=== PATIENT | male | born 1960 | race Caucasian/White ===

== ENCOUNTER 2016-10-06 15:48 | Inpatient (IN) | payer OTHER ==
[2016-10-06] MEDS ORDERED: SODIUM CHLORIDE 0.9% 1,000 ML IV STA (15:57)
--- NOTE | 2016-10-06 16:02 | ED ---
General Adult HPI - General Stated complaint: TIA symptoms Time Seen by Provider: 10/06/16 15:51 Source: RN notes reviewed - History of Present Illness Initial comments: 56-year-old male presents to the emergency department with chief complaint of concern for possible TIA. The patient currently sees a metal object. The patient has been having headaches for weeks. The recently took him off his Tylenol threes and his headaches have worsened. Last night he had a coughing episode on his medications and had a vasovagal episode. After this he woke up and he just felt kind of out of it. Patient states that when away before he went to bed. Patient woke up this morning feeling okay but the doctor evaluated him and was concerned about a possible TIA and wanted a CT of the head done. The patient has no new symptoms. He does have chronic shuffling gait and weakness to the left side from previous stroke. Patient has chronic immobility of the left shoulder due to an injury in the past. At this patient is back at baseline and has no neurological symptoms. The patient and were concerned due to the continuing headache with the episode of confusion lasting without that they should be seen.Patient denies any recent fever, chills, shortness of breath, chest pain, back pain, abdominal pain, nausea vomiting, numbness or tingling, dysuria or hematuria, constipation or diarrhea, visual changes, or any other current symptoms. - Related Data Home Medications Medication Instructions Recorded Confirmed Albuterol Inhaler [Ventolin Hfa 2 puff INHALATION RT-Q4H PRN 09/02/16 10/06/16 Inhaler] Aspirin 325 mg PO DAILY 09/02/16 10/06/16 Atenolol/Chlorthalidone 1 tab PO Q12H 09/02/16 10/06/16 [Atenolol-Chlorthalidone 100-25] Carboxymethylcellulose Sodium 1 drop LEFT EYE Q8H PRN 09/02/16 10/06/16 [Refresh Tears] Clopidogrel [Plavix] 75 mg PO DAILY 09/02/16 10/06/16 Gabapentin [Neurontin] 300 mg PO Q8H 09/02/16 10/06/16 Ibuprofen [Motrin] 800 mg PO Q8H PRN 09/02/16 10/06/16 Meclizine [Antivert] 25 mg PO Q6H PRN 09/02/16 10/06/16 Pregabalin [Lyrica] 75 mg PO BID 09/02/16 10/06/16 traZODone HCL 50 mg PO HS 09/02/16 10/06/16 Acetaminophen-Codeine 300-30mg 1 tab PO Q6H PRN 10/06/16 10/06/16 [Tylenol #3] Aspirin EC [Ecotrin Low Dose] 81 mg PO DAILY 10/06/16 10/06/16 Atorvastatin [Lipitor] 40 mg PO HS 10/06/16 10/06/16 Furosemide [Lasix] 40 mg PO BID 10/06/16 10/06/16 Hydrocodone/Acetaminophen [Piqua 1 tab PO Q6HR PRN 10/06/16 10/06/16 5-325] Ranitidine HCl [Zantac] 150 mg PO HS 10/06/16 10/06/16 Verapamil HCl [Calan] 120 mg PO DAILY 10/06/16 10/06/16 Previous Rx's Medication Instructions Recorded amLODIPine [Norvasc] 10 mg PO HS #30 tab 09/06/16 Allergies Allergy/AdvReac Type Severity Reaction Status Date / Time No Known Allergies Allergy Verified 10/06/16 16:58 Review of Systems ROS Statement: Those systems with pertinent positive or pertinent negative responses have been documented in the HPI. ROS Other: All systems not noted in ROS Statement are negative. Past Medical History Past Medical History: Coronary Artery Disease (CAD), CVA/TIA, GERD/Reflux, Hypertension Additional Past Medical History / Comment(s): neuropathy History of Any Multi-Drug Resistant Organisms: None Reported Past Surgical History: No Surgical Hx Reported Past Psychological History: Depression Smoking Status: Former smoker Past Alcohol Use History: None Reported Past Drug Use History: None Reported General Exam - General Exam Comments Initial Comments: General: The patient is awake and alert, in no distress, and does not appear acutely ill. Eye: Pupils are equal, round and reactive to light, extra-ocular movements are intact; there is normal conjunctiva bilaterally. No signs of icterus. Ears, nose, mouth and throat: There are moist mucous membranes and no oral lesions. Neck: The neck is supple, there is no tenderness. Cardiovascular: There is a regular rate and rhythm. No murmur, rub or gallop is appreciated. Respiratory: Lungs are clear to auscultation, respirations are non-labored, breath sounds are equal. No wheezes, stridor, rales, or rhonchi. Gastrointestinal: Soft, non-distended, non-tender abdomen without masses or organomegaly noted. There is no rebound or guarding present. No CVA tenderness. Bowel sounds are unremarkable. Back: There is no tenderness to palpation in the midline. There is no obvious deformity. No rashes noted. Musculoskeletal: Decreased range of motion of left shoulder which is chronic for patient, no tenderness, There is no pedal edema. There is no calf tenderness or swelling. Sensation intact. Pulses equal bilaterally 2+. Neurological: CN II-XII intact, There are no obvious motor or sensory deficits. Coordination appears grossly intact. Speech is normal. Finger to nose does appear to be appropriate, no ataxia noted. Skin: Skin is warm and dry and no rashes or lesions are noted. Psychiatric: Cooperative, appropriate mood & affect, normal judgment. Course Vital Signs 10/06/16 10/06/16 15:56 17:17 Temperature 98.0 F 98 F Pulse Rate 72 61 Respiratory 18 18 Rate Blood Pressure 169/74 158/79 O2 Sat by Pulse 99 96 Oximetry EKG Findings - EKG Comments: EKG Findings:: normal sinus rhythm 65 bpm, normal axis, no atopy, no S-T depressions or elevations, Medical Decision Making - Medical Decision Making 56-year-old male presents emergency 5 chief complaint concern for TIA due to confusion he had last night. Patient is baseline with no new Neurological deficits. At this time the patient has remained his chronic neurological baseline. Due to history of lung strokes as well as the known confusion last night there is concern that this could have a more significant cause. This time there is concern for TIA. Due to his significant history we will admit. The case is discussed with Dr. Zarate does agree to the plan. The patient is in agreement as well. All questions have been answered. He will be admitted. - Lab Data Result diagrams: 10/06/16 16:20 10/06/16 16:20 Lab Results 10/06/16 10/06/16 10/06/16 Range/Units 16:20 16:20 16:20 WBC 11.0 H (3.8-10.6) k/uL RBC 3.59 L (4.30-5.90) m/uL Hgb 10.7 L (13.0-17.5) gm/dL Hct 31.4 L (39.0-53.0) % MCV 87.5 D (80.0-100.0) fL MCH 29.9 (25.0-35.0) pg MCHC 34.1 (31.0-37.0) g/dL RDW 12.7 (11.5-15.5) % Plt Count 404 (150-450) k/uL Neutrophils % 65 % Lymphocytes % 16 % Monocytes % 9 % Eosinophils % 5 % Basophils % 1 % Neutrophils # 7.2 (1.3-7.7) k/uL Lymphocytes # 1.8 (1.0-4.8) k/uL Monocytes # 1.0 (0-1.0) k/uL Eosinophils # 0.5 (0-0.7) k/uL Basophils # 0.1 (0-0.2) k/uL PT (9.0-12.0) sec INR (<1.1) APTT (22.0-30.0) sec Sodium 130 L (137-145) mmol/L Potassium 3.2 L (3.5-5.1) mmol/L Chloride 83 L (98-107) mmol/L Carbon Dioxide 33 H (22-30) mmol/L Anion Gap 14 mmol/L BUN 26 H (9-20) mg/dL Creatinine 1.09 (0.66-1.25) mg/dL Est GFR (MDRD) Af Amer >60 (>60 ml/min/1.73 sqM) Est GFR (MDRD) Non-Af >60 (>60 ml/min/1.73 sqM) Glucose 86 (74-99) mg/dL Calcium 9.5 (8.4-10.2) mg/dL Total Bilirubin 0.6 (0.2-1.3) mg/dL AST 21 (17-59) U/L ALT 29 (21-72) U/L Alkaline Phosphatase 60 (38-126) U/L Total Creatine Kinase 82 (55-170) U/L CK-MB (CK-2) 0.3 (0.0-2.4) ng/mL CK-MB (CK-2) Rel Index 0.4 Troponin I <0.012 (0.000-0.034) ng/mL Total Protein 7.7 (6.3-8.2) g/dL Albumin 4.4 (3.5-5.0) g/dL 10/06/16 Range/Units 16:20 WBC (3.8-10.6) k/uL RBC (4.30-5.90) m/uL Hgb (13.0-17.5) gm/dL Hct (39.0-53.0) % MCV (80.0-100.0) fL MCH (25.0-35.0) pg MCHC (31.0-37.0) g/dL RDW (11.5-15.5) % Plt Count (150-450) k/uL Neutrophils % % Lymphocytes % % Monocytes % % Eosinophils % % Basophils % % Neutrophils # (1.3-7.7) k/uL Lymphocytes # (1.0-4.8) k/uL Monocytes # (0-1.0) k/uL Eosinophils # (0-0.7) k/uL Basophils # (0-0.2) k/uL PT 11.0 (9.0-12.0) sec INR 1.1 (<1.1) APTT 22.1 (22.0-30.0) sec Sodium (137-145) mmol/L Potassium (3.5-5.1) mmol/L Chloride (98-107) mmol/L Carbon Dioxide (22-30) mmol/L Anion Gap mmol/L BUN (9-20) mg/dL Creatinine (0.66-1.25) mg/dL Est GFR (MDRD) Af Amer (>60 ml/min/1.73 sqM) Est GFR (MDRD) Non-Af (>60 ml/min/1.73 sqM) Glucose (74-99) mg/dL Calcium (8.4-10.2) mg/dL Total Bilirubin (0.2-1.3) mg/dL AST (17-59) U/L ALT (21-72) U/L Alkaline Phosphatase (38-126) U/L Total Creatine Kinase (55-170) U/L CK-MB (CK-2) (0.0-2.4) ng/mL CK-MB (CK-2) Rel Index Troponin I (0.000-0.034) ng/mL Total Protein (6.3-8.2) g/dL Albumin (3.5-5.0) g/dL Disposition Clinical Impression: TIA (transient ischemic attack), Headache, History of CVA (cerebrovascular accident), Syncopal episodes Disposition: ADMITTED IP TO THIS [facility] Condition: Stable Time of Disposition: 18:06 Decision Date: 10/06/16 Decision Time: 18:06
[2016-10-06 16:49] LABS: Basophils # (A) 0.1 k/uL (0-0.2); Basophils % (A) 1 %; CH 30.3; CHCM 34.7; Eosinophils # (A) 0.5 k/uL (0-0.7); Eosinophils % (A) 5 %; HCT 31.4 % (39.0-53.0); HDW 3.05; HGB 10.7 gm/dL (13.0-17.5); Luc % (Auto) 4; Lymphocytes # (A) 1.8 k/uL (1.0-4.8); Lymphocytes % (A) 16 %; MCH 29.9 pg (25.0-35.0); MCHC 34.1 g/dL (31.0-37.0); Mean Platelet Volume 6.2; Monocytes % (A) 9 %; Neutrophils # (A) 7.2 k/uL (1.3-7.7); Neutrophils % (A) 65 %; RBC 3.59 m/uL (4.30-5.90); RDW 12.7 % (11.5-15.5); WBC (Perox) 11.42
[2016-10-06 16:51] LABS: MCV 87.5 fL (80.0-100.0)
[2016-10-06 16:52] LABS: INR 1.1 (<1.1); Partial Thromboplastin Time 22.1 sec (22.0-30.0)
[2016-10-06 16:59] LABS: ALT 29 U/L (21-72); AST 21 U/L (17-59); Alkaline Phosphatase 60 U/L (38-126); Anion Gap 14 mmol/L; Blood Urea Nitrogen 26 mg/dL (9-20); Calcium 9.5 mg/dL (8.4-10.2); Carbon Dioxide 33 mmol/L (22-30); Chloride 83 mmol/L (98-107); Glucose 86 mg/dL (74-99); Non-African American GFR(MDRD) >60 (>60 ml/min/1.73 sqM); Potassium 3.2 mmol/L (3.5-5.1); Sodium 130 mmol/L (137-145); Total Bilirubin 0.6 mg/dL (0.2-1.3); Total Protein 7.7 g/dL (6.3-8.2)
--- NOTE | 2016-10-06 17:17 | CT ---
EXAMINATION TYPE: CT brain wo con DATE OF EXAM: 10/06/2016 5:12 PM COMPARISON: 09/14/2016 HISTORY: Headache x couple days. CT DLP: 1227.00 mGycm FINDINGS: The ventricles, basal cisterns and sulci overlying the cerebral convexities demonstrate mild enlargem ent. Remote left cerebellar and right occipital infarcts. There is no evidence for acute mass effect or midline shift. I do not see evidence for cranial hemorrhage or extra-axial collection. Periventricular white matter ischemic demyelination and remote deep white matter insults noted. Under lying demyelination not excluded. Paranasal sinuses are well aerated. Bony calvarium is intact. If symptoms persist consider MRI correlation. IMPRESSION: 1. No acute intracranial process identified.
--- NOTE | 2016-10-06 17:20 | XR ---
EXAMINATION TYPE: XR chest 2V DATE OF EXAM: 10/06/2016 5:12 PM COMPARISON: 09/02/16 HISTORY: Shortness of breath TECHNIQUE: Frontal and lateral views of the chest are obtained. FINDINGS: Scattered senescent parenchymal changes noted. Hyperinflation compatible with COPD. No evidence for infiltrate. No evidence for atelectasis. Heart size is stable. Mediastinal structures are stable and grossly unremarkable. No evidence for hilar prominence. Degenerative changes dorsal spine. IMPRESSION: 1. No evidence for acute pulmonary disease.
[2016-10-06 17:22] LABS: Creatine Kinase 82 U/L (55-170)
[2016-10-06 17:35] LABS: Creatine Kinase MB 0.3 ng/mL (0.0-2.4); Troponin I <0.012 ng/mL (0.000-0.034)
[2016-10-06] MEDS ORDERED: ARTIFICIAL TEARS-HYPROMELLOSE DROPS 15 ML BTL LEFT EYE PRN (18:08)
[2016-10-06] MEDS ORDERED: MECLIZINE 25 MG TAB PO PRN (18:08)
[2016-10-06] MEDS ORDERED: ALBUTEROL NEBULIZED 2.5 MG/3 ML INHALATION PRN (18:08)
[2016-10-06] MEDS ORDERED: ACETAMINOPHEN TAB 500 MG TAB PO PRN (18:08)
[2016-10-06 20:04] VITALS: BMI 30.1
[2016-10-06] MEDS: SODIUM CHLORIDE 0.9% 1,000 ML IV SCH (20:16)
[2016-10-06] MEDS: GABAPENTIN 300 MG CAP PO SCH (20:17)
[2016-10-06] MEDS: CHLORTHALIDONE 25 MG TAB PO SCH (20:18)
[2016-10-06] MEDS: IBUPROFEN 800 MG TAB PO PRN (20:18)
[2016-10-06] MEDS: traZODone HCL 50 MG TAB PO SCH (20:19)
[2016-10-06] MEDS: FAMOTIDINE 20 MG TAB PO SCH (20:19)
[2016-10-06] MEDS: PREGABALIN 75 MG CAP PO SCH (20:19)
[2016-10-06] MEDS: ATORVASTATIN 40 MG TAB PO SCH (20:22)
[2016-10-06] MEDS: amLODIPine 10 MG TAB PO SCH (20:22)
[2016-10-06] MEDS: FUROSEMIDE 40 MG TAB PO SCH (20:22)
[2016-10-06] MEDS: HYDROcodone/APAP 5-325MG 1 EACH TAB PO PRN (23:33)
[2016-10-07] MEDS: GABAPENTIN 300 MG CAP PO SCH ×3 (03:43→17:02)
[2016-10-07] MEDS: SODIUM CHLORIDE 0.9% 1,000 ML IV SCH ×3 (06:16→23:30)
[2016-10-07] MEDS: CLOPIDOGREL 75 MG TAB PO SCH (09:19)
[2016-10-07] MEDS: ATENOLOL 50 MG TAB PO SCH ×2 (09:20→22:00)
[2016-10-07] MEDS: PREGABALIN 75 MG CAP PO SCH ×2 (09:20→21:59)
[2016-10-07] MEDS: FUROSEMIDE 40 MG TAB PO SCH ×2 (09:20→21:59)
[2016-10-07] MEDS: VERAPAMIL SR 120 MG TABLET.ER PO SCH (09:20)
[2016-10-07] MEDS: CHLORTHALIDONE 25 MG TAB PO SCH ×2 (09:22→21:59)
--- NOTE | 2016-10-07 09:27 | US ---
EXAMINATION TYPE: US carotid duplex BILAT DATE OF EXAM: 10/07/2016 8:45 AM COMPARISON: NONE CLINICAL HISTORY: Left sharp head pain that radiates to left eye, TIA a few months ago. EXAM MEASUREMENTS: RIGHT: Peak Systolic Velocity (PSV) cm/sec ----- Right CCA: 96.1 ----- Right ICA: 127.3 ----- Right ECA: 110.5 ICA/CCA ratio: 1.3 RIGHT: End Diastole cm/sec ----- Right CCA: 27.7 ----- Right ICA: 44.4 ----- Right ECA: 15.7 LEFT: Peak Systolic Velocity (PSV) cm/sec ----- Left CCA: 88.8 ----- Left ICA: 202.4 ----- Left ECA: 134.7 ICA/CCA ratio: 2.3 LEFT: End Diastole cm/sec ----- Left CCA: 26.9 ----- Left ICA: 86.1 ----- Left ECA: 24.7 VERTEBRALS (direction of flow): Right Vertebral: Antegrade Left Vertebral: Retrograde Heterogeneous plaque seen bilaterally with increased velocities noted at bilateral proximal ICA's, retrograde flow seen within left vertebral artery Grayscale, color Doppler, spectral Doppler imaging performed of the carotid arteries. IMPRESSION: Hemodynamic significant stenosis of the proximal internal carotid artery on the left cor responding to approximately 50-69% diameter stenosis by Doppler criteria. Correlate for subclavian st eal on the left. Carotid CTA or MRA may be of benefit. Criteria for Assigning % of Stenosis / Diameter reduction (Estimation based on the indirect measurements of the internal carotid artery velocities (ICA PSV). 1. Normal (no stenosis)=ICA PSV < 125 cm/s: ratio < 2.0: ICA EDV<40 cm/s. 2. Less than 50% stenosis=ICA PSV < 125 cm/s: ratio < 2.0: ICA EDV<40 cm/s. 3. 50 to 69% stenosis=ICA PSV of 125 to 230 cm/s: ration 2.0 ? 4.0: ICA EDV 40-100 cm/s. 4. Greater than 70% stenosis to near occlusion= ICA PSV > 230 cm/s: ratio > 4.0: ICA EDV > 100 cm/s. 5. Near occlusion= ICA PSV velocities may be low or undetectable: variable ratio and ICA EDV. 6. Total occlusion=unable to detect flow.
[2016-10-07] MEDS: IBUPROFEN 800 MG TAB PO PRN ×2 (11:10→18:32)
[2016-10-07] MEDS ORDERED: RX INFO: IV CONTRAST WAS GIVEN 1 EACH MISC MISCELLANE PRN (16:38)
[2016-10-07] MEDS: ASPIRIN 325 MG TAB PO SCH (17:02)
[2016-10-07] MEDS ORDERED: ALPRAZolam 0.25 MG TAB PO PRN (17:26)
[2016-10-07] MEDS: amLODIPine 10 MG TAB PO SCH (21:59)
[2016-10-07] MEDS: ATORVASTATIN 40 MG TAB PO SCH (21:59)
[2016-10-07] MEDS: HEPARIN SODIUM,PORCINE 5,000 UNIT/ML 1 ML VIAL SQ SCH (21:59)
[2016-10-07] MEDS: FAMOTIDINE 20 MG TAB PO SCH (22:00)
[2016-10-07] MEDS: traZODone HCL 50 MG TAB PO SCH (22:00)
[2016-10-07] MEDS: HYDROcodone/APAP 5-325MG 1 EACH TAB PO PRN (22:21)
[2016-10-07] MEDS ORDERED: Potassium Replacement Protocol 1 EACH MISC MISCELLANE PRN (22:48)
--- NOTE | 2016-10-07 22:49 | HP ---
DATE OF ADMISSION: 10/06/2016 CHIEF COMPLAINT: Weakness. HISTORY OF PRESENT ILLNESS: This 56-year-old gentleman with a past medical history of multiple medical problems including CAD, CVA, TIA, GERD, hypertension, being followed by Dr. Sinha in the outpatient setting was recently admitted with accelerated hypertension with endorgan damage. The patient was monitored with IV fluids and blood pressure medications adjusted. The patient went home and subsequently the patient was noted to have weakness and the patient apparently had some headaches. The patient also had a coughing episode followed by vasovagal episode and because of multiple complaints, the patient also complains of numbness of the left leg and the patient came to [facility] and admitted to the hospital for further evaluation and treatment. Patient also has history of old stroke also. Patient being followed by Dr. Sinha in the outpatient setting. The patient is currently mildly confused, unable to give coherent history. Most of the history taken from my discussion with staff and review of the chart. PAST MEDICAL HISTORY: History of CAD, CVA, TIA, GERD, hypertension, peripheral neuropathy. Medications prior to admission include: The home medications include: 1. Motrin 800 mg q8h p.r.n. 2. Karval 5 mg q.6 p.r.n. 3. Tylenol #3 1 tablet q.6. 4. Lyrica 75 mg p.o. b.i.d. 5. Neurontin 300 mg q.8 p.r.n. 6. Refresh DS one drop q8h. 7. Lasix 40 mg b.i.d. 8. Atenolol 1 tablet b.i.d. 9. Trazodone 50 mg q.h.s. 10. Zantac 150 mg q.h.s. 11. Plavix 75 milligrams daily. 12. Gabriel mg daily. 13. Lipitor 40 mg daily. 14. Norvasc 10 mg q.h.s. 15. Ecotrin 81 mg daily. 16. Aspirin 320 mg daily. 17. Antivert 25 mg q.6h. 18. Albuterol 2 puffs q.4 p.r.n. ALLERGIES: None. FAMILY HISTORY: No history of heart disease or strokes in the family. SOCIAL HISTORY: Previous history of smoking. No history of alcohol. Review of systems could not be taken because of ch in ms. PHYSICAL EXAMINATION: The patient is conscious, confused. Pulse 61, blood pressure 130/66, respiratory rate 16, temperature normal, pulse ox 97% on room air. HEENT: Conjunctivae normal. Oral mucosa moist. NECK: No jugular venous distention. No carotid bruits. No lymph node enlargement. CARDIOVASCULAR: S1, S2 normal. No S3, no S4. RESPIRATORY: Breath sounds diminished at the bases. A few scattered rhonchi and crackles. ABDOMEN: Soft, obese, nontender. No mass palpable. Legs: No edema, no swelling. Nervous system: Higher functions as mentioned earlier. Moves all 4 limbs. Right more than left. Otherwise diffuse weakness. Sensations appear to be normal. LYMPHATICS: No lymph nodes palpable in the neck, axillae or groin. SKIN: No ulcer, rash or bleeding. LABS: WBC 11, hemoglobin 10.7, sodium 130, potassium 3.0. ASSESSMENT: 1. Change in mental status and generalized weakness, possible acute transient ischemic attack involving the right hemisphere causing left side weakness. 2. History of cerebrovascular accident, transient ischemic attack. 3. Possible metabolic encephalopathy. 4. Increased WBC. 5. Anemia, normocytic anemia of chronic disease. 6. Hyponatremia. 7. Hypokalemia. 8. Hypertension. 9. History of coronary artery disease. 10. History of gastroesophageal reflux disease. 11. History of peripheral neuropathy. 12. Remote history of nicotine dependence. 13. Left carotid stenosis 50 to 69% and rule out subclavian steal on the left. RECOMMENDATIONS AND DISCUSSION: In this 56-year-old gentleman who presented with multiple complex medical issues, we will monitor the patient closely. Continue the current medications continue symptomatic treatment. Antiplatelet agents. DVT prophylaxis. Neurology consultation. PT/OT evaluation. and vascular surgery evaluation. Otherwise continue to monitor. PT/OT evaluation and possible ECF rehab. Guarded prognosis because of multiple complex medical issues. Monitor blood pressure closely. See orders for details. MTDD
[2016-10-07] MEDS: POTASSIUM CHLORIDE 10 MEQ, LIDOCAINE 2% INJ 10 MG in SODIUM CHLORIDE 0.9% 100 ML IV SCH (23:30)
[2016-10-08] MEDS: POTASSIUM CHLORIDE 10 MEQ, LIDOCAINE 2% INJ 10 MG in SODIUM CHLORIDE 0.9% 100 ML IV SCH (00:37)
[2016-10-08 02:09] LABS: Appearance,Urine Clear (Clear); Bilirubin,Urine Negative (Negative); Glucose,Urine (UA) Negative (Negative); Ketones,Urine Negative (Negative); Leukocyte Esterase,Urine Negative (Negative); Nitrite,Urine Negative (Negative); Protein,Urine Negative (Negative); Specific Gravity,Urine 1.007 (1.001-1.035); UA Billing (MACRO vs. MICRO) CHEM; Urobilinogen,Urine <2.0 mg/dL (<2.0)
[2016-10-08] MEDS: GABAPENTIN 300 MG CAP PO SCH ×3 (03:06→18:00)
[2016-10-08] MEDS: IBUPROFEN 800 MG TAB PO PRN ×2 (04:20→17:08)
[2016-10-08 06:46] LABS: Basophils # (A) 0.1 k/uL (0-0.2); Basophils % (A) 1 %; CH 29.8; CHCM 32.8; Eosinophils # (A) 0.3 k/uL (0-0.7); Eosinophils % (A) 4 %; HCT 33.2 % (39.0-53.0); HDW 2.97; HGB 10.8 gm/dL (13.0-17.5); Luc # (Auto) 0.29; Luc % (Auto) 4; Lymphocytes # (A) 1.9 k/uL (1.0-4.8); Lymphocytes % (A) 23 %; MCH 29.6 pg (25.0-35.0); MCHC 32.5 g/dL (31.0-37.0); MCV 91.1 fL (80.0-100.0); Mean Platelet Volume 6.1; Monocytes # (A) 0.6 k/uL (0-1.0); Monocytes % (A) 7 %; Neutrophils # (A) 5.3 k/uL (1.3-7.7); Neutrophils % (A) 63 %; RBC 3.64 m/uL (4.30-5.90); RDW 12.7 % (11.5-15.5); WBC 8.4 k/uL (3.8-10.6); WBC (Perox) 8.71
[2016-10-08 06:51] LABS: Anion Gap 11 mmol/L; Blood Urea Nitrogen 26 mg/dL (9-20); Calcium 9.3 mg/dL (8.4-10.2); Carbon Dioxide 34 mmol/L (22-30); Chloride 89 mmol/L (98-107); Cholesterol 132 mg/dL (<200); Glucose 89 mg/dL (74-99); HDL Cholesterol 41 mg/dL (40-60); Non-African American GFR(MDRD) >60 (>60 ml/min/1.73 sqM); Potassium 3.6 mmol/L (3.5-5.1); Sodium 134 mmol/L (137-145); Triglycerides 72 mg/dL (<150)
[2016-10-08] MEDS ORDERED: PANTOPRAZOLE 40 MG TABLET PO SCH (07:30)
--- NOTE | 2016-10-08 07:32 | P.GSCN ---
History of Present Illness History of present illness: 56-year-old white male, patient has been admitted with history of headache confusion he's been taking Tylenol for the headache was stopped and he developed some vasovagal symptoms confusion and has been admitted for further evaluation computed tomography scan of the brain shows normal no bleeding noted carotid ultrasound shows left side 56% stenosis with possibility of steal phenomena No history of TIA [facility] venous patient was seen in his room his vital signs stable neuro stable patient is scheduled to have his CT of the carotid and subclavian Medical history history of coronary artery disease history of CVA in the past history of hypertension history of depression On examination neck is supple no bruit appreciated chest examination chest is clear auscultation first and second sound normal Abdomen soft nontender Vascular examination brachial radial femoral pulses are present patient has normal motor function of upper and lower extremity Plan is a CTA of the carotid and subclavian rule out steal follow with you thank you Past Medical History Past Medical History: Coronary Artery Disease (CAD), CVA/TIA, GERD/Reflux, Hypertension Additional Past Medical History / Comment(s): neuropathy History of Any Multi-Drug Resistant Organisms: None Reported Past Surgical History: No Surgical Hx Reported Past Psychological History: No Psychological Hx Reported Smoking Status: Former smoker Past Alcohol Use History: None Reported Past Drug Use History: None Reported Medications and Allergies Home Medications Medication Instructions Recorded Confirmed Type Albuterol Inhaler [Ventolin Hfa 2 puff INHALATION RT-Q4H PRN 09/02/16 10/06/16 History Inhaler] Aspirin 325 mg PO DAILY 09/02/16 10/06/16 History Atenolol/Chlorthalidone 1 tab PO Q12H 09/02/16 10/06/16 History [Atenolol-Chlorthalidone 100-25] Carboxymethylcellulose Sodium 1 drop LEFT EYE Q8H 09/02/16 10/06/16 History [Refresh Tears] Clopidogrel [Plavix] 75 mg PO DAILY 09/02/16 10/06/16 History Gabapentin [Neurontin] 300 mg PO Q8H 09/02/16 10/06/16 History Ibuprofen [Motrin] 800 mg PO Q8H PRN 09/02/16 10/06/16 History Meclizine [Antivert] 25 mg PO Q6H PRN 09/02/16 10/06/16 History Pregabalin [Lyrica] 75 mg PO BID 09/02/16 10/06/16 History traZODone HCL 50 mg PO HS 09/02/16 10/06/16 History Acetaminophen-Codeine 300-30mg 1 tab PO Q6H PRN 10/06/16 10/06/16 History [Tylenol #3] Aspirin EC [Ecotrin Low Dose] 81 mg PO DAILY 10/06/16 10/06/16 History Atorvastatin [Lipitor] 40 mg PO HS 10/06/16 10/06/16 History Furosemide [Lasix] 40 mg PO BID 10/06/16 10/06/16 History Hydrocodone/Acetaminophen [Almo 1 tab PO Q6HR PRN 10/06/16 10/06/16 History 5-325] Ranitidine HCl [Zantac] 150 mg PO HS 10/06/16 10/06/16 History Verapamil HCl [Calan] 120 mg PO DAILY 10/06/16 10/06/16 History Allergies Allergy/AdvReac Type Severity Reaction Status Date / Time No Known Allergies Allergy Verified 10/06/16 16:58 Surgical - Exam Vital Signs Temp Pulse Resp BP Pulse Ox 98.0 F 72 18 169/74 99 10/06/16 15:56 10/06/16 15:56 10/06/16 15:56 10/06/16 15:56 10/06/16 15:56 Results - Labs 10/08/16 06:07 10/08/16 06:07 Abnormal Lab Results - Last 24 Hours (Table) 10/07/16 10/08/16 10/08/16 Range/Units 01:59 06:07 06:07 RBC 3.64 L (4.30-5.90) m/uL Hgb 10.8 L (13.0-17.5) gm/dL Hct 33.2 L (39.0-53.0) % Sodium 134 L (137-145) mmol/L Chloride 89 L (98-107) mmol/L Carbon Dioxide 34 H (22-30) mmol/L BUN 26 H (9-20) mg/dL Urine Opiates Screen Detected H (NotDetected) Diabetes panel 10/08/16 Range/Units 06:07 Sodium 134 L (137-145) mmol/L Potassium 3.6 (3.5-5.1) mmol/L Chloride 89 L (98-107) mmol/L Carbon Dioxide 34 H (22-30) mmol/L BUN 26 H (9-20) mg/dL Creatinine 1.10 (0.66-1.25) mg/dL Glucose 89 (74-99) mg/dL Calcium 9.3 (8.4-10.2) mg/dL Triglycerides 72 (<150) mg/dL HDL Cholesterol 41 (40-60) mg/dL Calcium panel 10/08/16 Range/Units 06:07 Calcium 9.3 (8.4-10.2) mg/dL Pituitary panel 10/08/16 Range/Units 06:07 Sodium 134 L (137-145) mmol/L Potassium 3.6 (3.5-5.1) mmol/L Chloride 89 L (98-107) mmol/L Carbon Dioxide 34 H (22-30) mmol/L BUN 26 H (9-20) mg/dL Creatinine 1.10 (0.66-1.25) mg/dL Glucose 89 (74-99) mg/dL Calcium 9.3 (8.4-10.2) mg/dL Adrenal panel 10/08/16 Range/Units 06:07 Sodium 134 L (137-145) mmol/L Potassium 3.6 (3.5-5.1) mmol/L Chloride 89 L (98-107) mmol/L Carbon Dioxide 34 H (22-30) mmol/L BUN 26 H (9-20) mg/dL Creatinine 1.10 (0.66-1.25) mg/dL Glucose 89 (74-99) mg/dL Calcium 9.3 (8.4-10.2) mg/dL
--- NOTE | 2016-10-08 08:46 | CONS ---
DATE OF CONSULTATION: 10/07/2016 CHIEF COMPLAINT: Transient ischemic attack. HISTORY OF PRESENT ILLNESS: Mr. Belcher is a pleasant 56-year-old male who is being evaluated by the neurology service per the request of Dr. Palumbo for a transient ischemic attack. The patient has history of previous ischemic strokes and is on Plavix and aspirin at home. He is currently residing in a halfway. The patient was found to be more confused than usual and there was concern for another ischemic stroke. The patient does have a history of carotid stenosis as well. He was brought into [facility] emergency room for further work-up and management. A CT scan of the brain was done, which showed white matter changes along with old left cerebellum and right occipital lobe strokes. A carotid Doppler was done, which showed 50% to 69% stenosis involving the left internal carotid artery. His CBC showed mild leukocytosis at 11.1 and anemia with a hemoglobin of 10.7 and hematocrit of 31%. His comprehensive metabolic profile showed hyponatremia at 130, hypokalemia at 3.2, and slightly elevated BUN at 26. His cardiac enzymes were negative. The patient was started on IV hydration and admitted for further work-up and management. At the time of my evaluation, he is lying in his bed and appears to be in no acute distress. His symptoms of confusion have completely resolved. He denies any lateralizing numbness or weakness at this time. He still has a left visual field cut from his previous stroke. PAST MEDICAL HISTORY: Ischemic stroke, carotid stenosis, vertigo, gastroesophageal reflux disease, hypertension. The patient also has history of coronary artery disease and neuropathy. He also has history of depression. SOCIAL HISTORY: He denies any tobacco, alcohol or drug use. FAMILY HISTORY: Noncontributory. HOME MEDICATIONS: Reviewed in the chart. ALLERGIES: No known drug allergies. REVIEW OF SYSTEMS: CONSTITUTIONAL: Positive for fatigue. EYES: As mentioned above. ENT: Positive for occasional vertigo. CARDIOVASCULAR: Positive for coronary artery disease. RESPIRATORY: Negative. NEUROLOGICAL: As mentioned above. GASTROINTESTINAL: Positive for occasional heartburn. GENITOURINARY: Negative. MUSCULOSKELETAL: Negative. ENDOCRINE: Negative. DERMATOLOGICAL: Negative. PSYCHIATRIC: Positive for history of depression. PHYSICAL EXAM: Vital signs show a temperature of 97.2, pulse 65, respirations 17, blood pressure 121/69. GENERAL APPEARANCE: The patient is a well-developed male who appears to be in no acute distress. HEENT: Normocephalic, atraumatic, no facial asymmetry is seen. Extraocular muscles are intact. NECK: Supple with no masses felt. CARDIOVASCULAR: Regular rate and rhythm. ABDOMEN: Nontender, nondistended. EXTREMITIES: No edema or clubbing. NEUROLOGICAL EXAM: The patient is alert, aware, and oriented x3. Speech and language are normal. Strength is full in all 4 extremities. Sensory exam was normal to light touch in all 4 extremities. Azlzfe-zuxg-twxhii testing showed dysmetria in the left upper extremity. There is a reduced range of motion in the left upper extremity due to chronic shoulder pain. Cranial nerve testing showed a left visual field cut. IMPRESSION: 1. Transient ischemic attack. 2. Altered mental status, resolved. 3. History of ischemic stroke. 4. Left internal carotid artery stenosis. 5. Dysmetria. 6. Left visual field cut. 7. Hypertension. RECOMMENDATIONS: The patient may have suffered a transient ischemic attack with a transient episode of altered mental status. His symptoms have completely resolved. I did review his CT scan of the brain, which showed no acute findings. He continues to have a left visual field cut and dysmetria on the left side from his history of left cerebellar stroke and right occipital lobe stroke. I will keep him on his current antiplatelet medications. A CT angiogram of the neck and brain will be ordered. Dr. Jefferson has been consulted. I will order a fasting lipid panel, EEG, and serum homocysteine level. Continue neuro checks. I will continue to follow with you. Further recommendations to follow. Thank you for allowing me to participate in the care of your patient. If you have any questions, please feel free to contact me.
[2016-10-08] MEDS: VERAPAMIL SR 120 MG TABLET.ER PO SCH (10:43)
[2016-10-08] MEDS: HEPARIN SODIUM,PORCINE 5,000 UNIT/ML 1 ML VIAL SQ SCH ×2 (10:43→21:52)
[2016-10-08] MEDS: ASPIRIN 325 MG TAB PO SCH (10:43)
[2016-10-08] MEDS: CLOPIDOGREL 75 MG TAB PO SCH (10:43)
[2016-10-08] MEDS: ATENOLOL 50 MG TAB PO SCH ×2 (10:43→22:14)
[2016-10-08] MEDS: PREGABALIN 75 MG CAP PO SCH ×2 (10:43→21:52)
[2016-10-08] MEDS: CHLORTHALIDONE 25 MG TAB PO SCH ×2 (10:43→22:15)
[2016-10-08] MEDS: SODIUM CHLORIDE 0.9% 1,000 ML IV SCH (10:43)
[2016-10-08] MEDS: Acetaminophen-Codeine 300-30mg TAB PO PRN ×2 (10:47→21:59)
[2016-10-08] MEDS: MULTIVITAMINS, THERA 1 EACH TAB PO SCH (12:54)
[2016-10-08] MEDS: FOLIC ACID 1 MG TAB PO SCH (12:54)
[2016-10-08] MEDS: THIAMINE 100 MG TAB PO SCH (12:54)
[2016-10-08] MEDS ORDERED: LIDOCAINE 2% INJ 20 MG/ML SQ ONE (15:18)
--- NOTE | 2016-10-08 16:20 | IR ---
EXAMINATION TYPE: IR cvc insert >=5 years DATE OF EXAM: 10/08/2016 3:31 PM COMPARISON: NONE CLINICAL HISTORY: Carotid stenosis, altered mental status, hyperkalemia Needs long-term intravenous a ccess for therapy. PROCEDURE: After informed consent, the skin overlying the left upper extremity vein was localized with ultrasoun d and noted to be compressible and patent. An ultrasound image was obtained and submitted on the pat ient's chart. The overlying skin was prepped and draped and Lidocaine was used for local anesthesia. A skin emanuel was made with a scalpel. Access was gained to the vein under ultrasound guidance with a 21 gauge needle and a 0.018 inch wire was advanced. Access site was dilated with Peel-Away sheath and catheter tailored to the appropriate length and advanced such that the distal tip is at the cavoa trial junction. Spot image was obtained verifying placement. Catheter was fixed to the skin with farrell ture and a sterile dressing was placed following hemostasis. Catheter was aspirated and flushed with saline. Patient was discharged in stable condition without complication. Maximal barrier technique is utilized. Ultrasound image is documented on the chart. Ultrasound used with sterile technique. Fluoro time and fluoroscopic images submitted to document procedure: 59 intraoperative C-arm images d ocument the procedure, 0.5 minutes fluoroscopy time IMPRESSION: STATUS POST ULTRASOUND AND FLUOROSCOPIC GUIDED PICC LINE PLACEMENT, READY FOR USE. THIS PROCEDURE WAS PERFORMED BY THE UNDERSIGNED.
--- NOTE | 2016-10-08 16:45 | CT ---
EXAMINATION TYPE: CT angio head neck DATE OF EXAM: 10/08/2016 4:42 PM COMPARISON: NONE HISTORY: Pt states of syncope and loss of balance. CT DLP: 511.7 mGycm Automated exposure control for dose reduction was used. TECHNIQUE: Performed with IV Contrast, patient injected with 100 mL of Omnipaque 350. FINDINGS: CTA OF THE NECK: Visualized portions of the lungs are clear. There is a mild amount of mucoperiosteal thickening involving the left maxillary sinus. The major salivary glands are unremarkable. The parapharyngeal, oropharyngeal and laryngeal soft tissues are normal. The thyroid gland enhances homogeneously. There is some shotty cervical and posterior reticular adenopathy. No pathologically enlarged lymph no jing are seen. Vertebral body height and alignment are maintained. Atlantoaxial relationships are normal. There is r elatively severe degenerative disc disease and hypertrophic spondylosis at C4-5 and C5-6. There is un covertebral joint disease at these levels as well. There is moderate atheromatous plaque present in both carotid bulbs. There is a 60% diameter stenosis involving the proximal right ICA. There is no hemodynamically significant stenosis involving the pro ximal left ICA. The left vertebral artery is diminutive. The right vertebral artery is dominant. CTA OF [place]: There is mild mucoperiosteal thickening involving the left maxillary sinus as well as the sigmoid sin uses. There are mild changes of sulcal prominence and ventriculomegaly, compatible with atrophic change. Th ere is evidence of an old right occipital infarct as well as a left cerebellar infarct. There is no m ass effect, midline shift or intracranial blood. Cerebral vasculature is unremarkable without evidence of occlusion. There is no sizable aneurysm. Nei ther posterior communicating artery is visualized. IMPRESSION: 1. DIMINUTIVE LEFT VERTEBRAL ARTERY. 2. 60% DIAMETER STENOSIS OF THE PROXIMAL RIGHT ICA. 3. EVIDENCE OF A LEFT CEREBELLAR AND RIGHT OCCIPITAL INFARCT. THESE APPEAR OLD. 4. NORMAL CTA OF THE [place]. 5. MUCOPERIOSTEAL SINUS DISEASE INVOLVING THE LEFT MAXILLARY AND BOTH ETHMOIDAL SINUSES. 6. DEGENERATIVE CHANGES WITHIN THE SPINE.
[2016-10-08] MEDS: FUROSEMIDE 40 MG TAB PO SCH ×2 (17:02→18:00)
--- NOTE | 2016-10-08 17:29 | P.PN ---
Subjective Principal diagnosis: Patient is a pleasant 56-year-old male is being followed by the neurology service for transient ischemic attack. Patient has history of previous ischemic strokes and was on Plavix and aspirin in the home setting. Patient currently resides at a [facility]. Patient does have history of carotid artery stenosis. Carotid Doppler was done which showed 50-69% stenosis involving the left internal carotid artery. Dr. Jefferson was consulted. CT of the brain was done which showed white matter changes along with old left cerebellar and right occipital lobe strokes. At the time of my evaluation, patient is lying in bed and appears to be in no acute distress. Patient did not display symptoms of confusion. Objective - Vital Signs Vital signs: Vital Signs Temp 97.8 F 10/08/16 16:00 Pulse 59 L 10/08/16 16:00 Resp 20 10/08/16 16:00 BP 121/56 10/08/16 16:00 Pulse Ox 94 L 10/08/16 16:00 Intake & Output 10/07/16 10/08/16 10/08/16 18:59 06:59 18:59 Intake Total 250 430 Output Total 1600 1200 700 Balance -1600 -950 -270 Weight 93.5 kg Intake: IV 150 0.9 ns @50 150 Oral 100 430 Output: Urine 1600 1200 700 Other: Voiding Method Urinal Urinal Urinal - Exam PHYSICAL EXAM: GENERAL APPEARANCE: Patient is a well-developed, male who appears to be in no acute distress. HEENT: Normocephalic, atraumatic, no facial asymmetry is seen. Neck is supple with no masses felt. CARDIOVASCULAR: Regular rate and rhythm. ABDOMEN: Nontender, nondistended. EXTREMITIES: Show no edema or clubbing. NEUROLOGICAL EXAM: Patient is awake, alert, and oriented 3. Speech and language are normal. Strength is full in all 4 extremities. Sensory exam is normal to light touch in all 4 extremities. Patient does have a left visual field cut on cranial nerve testing. No tremors or seizure-like activity is seen. - Labs CBC & Chem 7: 10/08/16 06:07 10/08/16 06:07 Labs: Abnormal Lab Results - Last 24 Hours (Table) 10/07/16 10/08/16 10/08/16 Range/Units 01:59 06:07 06:07 RBC 3.64 L (4.30-5.90) m/uL Hgb 10.8 L (13.0-17.5) gm/dL Hct 33.2 L (39.0-53.0) % Sodium (137-145) mmol/L Chloride (98-107) mmol/L Carbon Dioxide (22-30) mmol/L BUN (9-20) mg/dL Homocysteine 19.57 H (4.00-14.00) umol/L Urine Opiates Screen Detected H (NotDetected) 10/08/16 Range/Units 06:07 RBC (4.30-5.90) m/uL Hgb (13.0-17.5) gm/dL Hct (39.0-53.0) % Sodium 134 L (137-145) mmol/L Chloride 89 L (98-107) mmol/L Carbon Dioxide 34 H (22-30) mmol/L BUN 26 H (9-20) mg/dL Homocysteine (4.00-14.00) umol/L Urine Opiates Screen (NotDetected) Assessment and Plan Plan: Impression: 1. Transient ischemic attack 2. Altered mental status, resolved 3. Left internal carotid artery stenosis 4. History of ischemic strokes 5. Left visual field cut 6. Hypertension Recommendations: It appears the patient did suffer a transient ischemic attack with transient episode of altered mental status. His symptoms have completely resolved. He continues to have left visual field cut which is residual from prior stroke. Continue current antiplatelet medications. CT angiogram of the neck revealed 60% stenosis of the proximal right internal carotid artery. Patient's lipid panel was within normal limits but he does have high homocysteine level of 19.57. I will start him on Foltx daily. Continue neurological checks. I will continue to follow with you. Further recommendations to follow. I performed an examination of the patient and discussed the management with the MONEY ORDER CLERK. I have reviewed the MONEY ORDER CLERK notes and agree with the findings and plan of care.
--- NOTE | 2016-10-08 20:04 | PN ---
DATE OF SERVICE: 10/08/2016 This 56-year-old gentleman admitted with weakness and possible TIA was being also evaluated to rule out the possibility of steal syndrome. neurology following the patient closely. CT the patient also has left field visual field defect. CT angiogram also being done which showed left vertebral artery 60%, stenosis with proximal right ICA evidence of cerebellar and right occipital infarct, possibly old and normal CT of the [place]. No hemodynamically significant stenosis on the left ICA. On exam, alert and oriented x3. Pulse 59, blood pressure 121/50. Respiratory rate 20. Temperature 97.9, pulse ox 94% on room air. HEENT: Conjunctivae normal. NECK: No jugular venous distention. CARDIOVASCULAR: S1, S2 muffled. RESPIRATORY: Breath sounds diminished at the bases. A few scattered rhonchi, no crackles. ABDOMEN: Soft, nontender. LEGS: No edema. No swelling. CENTRAL NERVOUS SYSTEM: Mild diffuse weakness. LABS: WBC 8.1, hemoglobin 10.8, sodium 134 and homocystines 19.57. ASSESSMENT: 1. Change in mental status, possibly weakness with possible acute transient ischemic attack involving the right hemisphere causing left-sided weakness. 2. Right internal carotid artery stenosis 60%. 3. Evidence of left cerebellar and right occipital infarct, possibly old. 4. Possible metabolic encephalopathy, multifactorial. 5. History of cerebrovascular accident, transient ischemic attack. 6. Increased WBC, 7. Anemia, normocytic of chronic disease. 8. Hyponatremia. 9. Hypokalemia. 10. Hypertension. 11. History of coronary artery disease. 12. History of gastroesophageal reflux disease. 13. History of peripheral neuropathy. 14. Remote history of nicotine dependence. RECOMMENDATIONS AND DISCUSSION: I recommend to continue current medications, continue with symptomatic treatment. Otherwise, continue with antiplatelets agents. Closely follow with neurology. Guarded prognosis because of multiple complex medical issues. Further recommendations to follow. MTDD
[2016-10-08] MEDS: traZODone HCL 50 MG TAB PO SCH (21:52)
[2016-10-08] MEDS: FAMOTIDINE 20 MG TAB PO SCH (21:52)
[2016-10-08] MEDS: amLODIPine 10 MG TAB PO SCH (21:52)
[2016-10-08] MEDS: ATORVASTATIN 40 MG TAB PO SCH (21:52)
[2016-10-09] MEDS: GABAPENTIN 300 MG CAP PO SCH ×2 (01:47→08:38)
[2016-10-09 06:33] LABS: Basophils # (A) 0.1 k/uL (0-0.2); Basophils % (A) 1 %; CH 30.1; CHCM 33.9; Eosinophils # (A) 0.4 k/uL (0-0.7); Eosinophils % (A) 4 %; HCT 32.4 % (39.0-53.0); HDW 2.99; HGB 10.5 gm/dL (13.0-17.5); Luc # (Auto) 0.18; Luc % (Auto) 2; Lymphocytes # (A) 1.6 k/uL (1.0-4.8); Lymphocytes % (A) 17 %; MCHC 32.5 g/dL (31.0-37.0); MCV 89.3 fL (80.0-100.0); Mean Platelet Volume 6.9; Monocytes # (A) 0.7 k/uL (0-1.0); Monocytes % (A) 7 %; Neutrophils # (A) 6.8 k/uL (1.3-7.7); Neutrophils % (A) 70 %; RBC 3.64 m/uL (4.30-5.90); RDW 12.9 % (11.5-15.5); WBC 9.7 k/uL (3.8-10.6)
[2016-10-09 06:44] LABS: Anion Gap 10 mmol/L; Blood Urea Nitrogen 22 mg/dL (9-20); Calcium 9.3 mg/dL (8.4-10.2); Carbon Dioxide 33 mmol/L (22-30); Chloride 92 mmol/L (98-107); Glucose 91 mg/dL (74-99); Non-African American GFR(MDRD) >60 (>60 ml/min/1.73 sqM); Potassium 3.6 mmol/L (3.5-5.1); Sodium 135 mmol/L (137-145)
[2016-10-09] MEDS: CHLORTHALIDONE 25 MG TAB PO SCH (08:36)
[2016-10-09] MEDS: ASPIRIN 325 MG TAB PO SCH (08:36)
[2016-10-09] MEDS: ATENOLOL 50 MG TAB PO SCH (08:36)
[2016-10-09] MEDS: HEPARIN SODIUM,PORCINE 5,000 UNIT/ML 1 ML VIAL SQ SCH (08:37)
[2016-10-09] MEDS: CLOPIDOGREL 75 MG TAB PO SCH (08:37)
[2016-10-09] MEDS: FUROSEMIDE 40 MG TAB PO SCH (08:37)
[2016-10-09] MEDS: VERAPAMIL SR 120 MG TABLET.ER PO SCH (08:38)
[2016-10-09] MEDS: PREGABALIN 75 MG CAP PO SCH (08:38)
[2016-10-09 08:39] VITALS: BP 153/82; PULSE 64; RESP 18; TEMP 98.2
[2016-10-09] MEDS: Acetaminophen-Codeine 300-30mg TAB PO PRN (08:44)
--- NOTE | 2016-10-09 11:35 | P.PN ---
Subjective Principal diagnosis: Patient is a pleasant 56-year-old male is being followed by the neurology service for transient ischemic attack. Patient has history of previous ischemic strokes and was on Plavix and aspirin in the home setting. Patient currently resides at a [facility]dc. Patient does have history of carotid artery stenosis. Carotid Doppler was done which showed 50-69% stenosis involving the left internal carotid artery. Dr. Jefferson was consulted. CTA was done which showed 60% stenosis of the right internal carotid artery. CT of the brain was done which showed white matter changes along with old left cerebellar and right occipital lobe strokes. At the time of my evaluation, patient is lying in bed and appears to be in no acute distress. Objective - Vital Signs Vital signs: Vital Signs Temp 98.2 F 10/09/16 08:00 Pulse 64 10/09/16 08:00 Resp 18 10/09/16 08:00 BP 153/82 10/09/16 08:00 Pulse Ox 96 10/09/16 08:00 Intake & Output 10/08/16 10/09/16 10/09/16 18:59 06:59 18:59 Intake Total 430 400 Output Total 1450 375 Balance -1020 25 Weight 88 kg Intake: IV 400 0.9 ns @50 400 Oral 430 Output: Urine 1450 375 Other: Voiding Method Urinal Urinal - Exam PHYSICAL EXAM: GENERAL APPEARANCE: Patient is a well-developed, male who appears to be in no acute distress. HEENT: Normocephalic, atraumatic, no facial asymmetry is seen. Neck is supple with no masses felt. CARDIOVASCULAR: Regular rate and rhythm. ABDOMEN: Nontender, nondistended. EXTREMITIES: Show no edema or clubbing. NEUROLOGICAL EXAM: Patient is awake, alert, and oriented 3. Speech and language are normal. Strength is full in all 4 extremities. Sensory exam is normal to light touch in all 4 extremities. Patient does have a left visual field cut on cranial nerve testing. No tremors or seizure-like activity is seen. - Labs CBC & Chem 7: 10/09/16 06:20 10/09/16 06:20 Labs: Abnormal Lab Results - Last 24 Hours (Table) 10/08/16 10/09/16 10/09/16 Range/Units 06:07 06:20 06:20 RBC 3.64 L (4.30-5.90) m/uL Hgb 10.5 L (13.0-17.5) gm/dL Hct 32.4 L (39.0-53.0) % Sodium 135 L (137-145) mmol/L Chloride 92 L (98-107) mmol/L Carbon Dioxide 33 H (22-30) mmol/L BUN 22 H (9-20) mg/dL Homocysteine 19.57 H (4.00-14.00) umol/L Assessment and Plan Plan: Impression: 1. Transient ischemic attack 2. Altered mental status, resolved 3. Left internal carotid artery stenosis/right internal carotid artery stenosis 4. History of ischemic strokes 5. Left visual field cut residual from prior stroke 6. Hypertension Recommendations: It appears the patient did suffer a transient ischemic attack with transient episode of altered mental status. His symptoms have completely resolved. He continues to have left visual field cut which is residual from prior stroke. Continue current antiplatelet medications. CT angiogram of the neck revealed 60% stenosis of the proximal right internal carotid artery. Patient will follow with Dr. Jefferson for possible intervention. Patient's lipid panel was within normal limits but he does have high homocysteine level of 19.57. Continue Foltx daily. Continue neurological checks. Patient is stable from a neurology standpoint for discharge. I will continue to follow with you on an as-needed basis. Feel free to call with any questions or concerns. I performed an examination of the patient and discussed the management with the ADMINISTRATIVE SUPPORT ASSOCIATE. I have reviewed the ADMINISTRATIVE SUPPORT ASSOCIATE notes and agree with the findings and plan of care.
[2016-10-09] MEDS: HYDROcodone/APAP 5-325MG 1 EACH TAB PO PRN (12:34)
[2016-10-09] MEDS: IBUPROFEN 800 MG TAB PO PRN (12:38)
--- NOTE | 2016-10-09 13:27 | DS ---
DATE OF ADMISSION: 10/06/2016 DATE OF DISCHARGE: FINAL DIAGNOSES: 1. Change in mental status with weakness, possible acute transient ischemic attack involving the right hemisphere causing left-sided weakness. 2. Possible acute metabolic encephalopathy. 3. Right internal carotid artery stenosis 60%. 4. Evidence of left cerebellar and right occipital infarct, possibly old. 5. History of cerebrovascular accident, transient ischemic attack. 6. Increased WBC. 7. Anemia, normocytic anemia of chronic disease. 8. Hyponatremia. 9. Hypokalemia. 10. Hypertension. 11. History of coronary artery disease. 12. History of gastroesophageal reflux disease. 13. History of peripheral neuropathy. 14. Remote history of nicotine dependence. DISCHARGE DISPOSITION: Patient will be discharged in a stable condition with guarded prognosis. Total time taken is 35 minutes. HISTORY OF PRESENT ILLNESS: This 56-year-old gentleman with a past medical history of multiple medical problems admitted with some weakness and as well as change in mental status. TIA was considered. Patient was treated symptomatically, improved significantly. Patient also CTA which showed right internal carotid stenosis and diminutive vertebral artery. Old strokes were redemonstrated. Otherwise, hemoglobin 10.5. Sodium is 135. On exam, vitals are stable. CARDIOVASCULAR SYSTEM: S1, S2 muffled. RESPIRATORY: n. ABDOMEN: Soft. NERVOUS SYSTEM: Diffuse weakness. The patient discharge after clearance from Neurology. Discharge advice and medications are as follows: 1. Diet is cardiac. 2. Activity as tolerated. 3. Follow up with Dr. Barahona as recommended, Neurology. 4. Follow up with Dr. Sinha. 5. Tylenol 500 q.4 p.r.n. 6. Tylenol No. 3 q.6 p.r.n. 7. Albuterol 2 puffs q.i.d. p.r.n. 8. Aspirin 81 mg p.o. daily. 9. Atenolol/chlorthalidone one p.o. b.i.d. 10. Lipitor 40 mg q.h.s. 11. Refresh eyedrops as before. 12. Plavix 75 mg p.o. daily. 13. Folic acid 1 mg p.o. daily. 14. Lasix 40 mg p.o. b.i.d. 15. Neurontin 300 mg p.o. q.8. 16. [place] 5 mg q.6 p.r.n. 17. Motrin 800 mg q.8 p.r.n. 18. Meclizine 25 mg q.6 p.r.n. 19. Multivitamins 1 p.o. daily. 20. Lyrica 75 mg p.o. b.i.d. 21. Zantac 150 mg q.h.s. 22. Thiamine 100 mg p.o. daily. 23. Calan 120 mg p.o. daily. 24. Norvasc 10 mg q.h.s. 25. Trazodone 50 mg q.h.s. MTDD
[2016-10-09] MEDS: MULTIVITAMINS, THERA 1 EACH TAB PO SCH (13:41)
[2016-10-09] MEDS: FOLIC ACID 1 MG TAB PO SCH (13:42)
[2016-10-09] MEDS: THIAMINE 100 MG TAB PO SCH (13:42)
--- NOTE | 2016-10-11 13:34 | EEG ---
DATE OF SERVICE: 10/08/16. INDICATIONS FOR EXAMINATION: Stroke. AGE: 56Y DESCRIPTION OF THE PROCEDURE: This EEG was performed using a 21 channel digital electroencephalogram , following international 10/20 system. DESCRIPTION OF THE RECORDING: From the beginning of the tracing, and with the patient's eyes closed, the background rhythm was mostly consisting of 8 Hz alpha frequency in the posterior occipital leads. No obvious asymmetry is seen. Frequent muscle artifacts are noticed, mainly on the right side. Occasional sharp and slow wave activity is also seen involving the right frontal temporal and parietal region. Frequent movement artifacts are seen throughout the tracing. Hyperventilation was not performed. The patient remains awake throughout the tracing. His EKG lead showed a regular rate and rhythm. INTERPRETATION: This awake EEG is abnormal due to the presence of occasional sharp and slow wave activity, consistent with epileptiform discharges. Clinical correlation is recommended.
== END 2016-10-09 16:10 | DRG 69 ==
LOC: EC 15:48 → 6SEL 18:07 → 5MS5E 10-08 15:25
PROVIDERS: ADMIT Hospitalist; ATTEND Hospitalist
PROC: 02HV33Z Insertion of Infusion Device into Superior Vena Cava, Percutaneous Approach (ICD-10-PCS; principal; 2016-10-08 15:00)
DX: G45.9 Transient cerebral ischemic attack, unspecified (principal); G93.41 Metabolic encephalopathy; E87.1 Hypo-osmolality and hyponatremia; G62.9 Polyneuropathy, unspecified; I10 Essential (primary) hypertension; D72.829 Elevated white blood cell count, unspecified; E87.6 Hypokalemia; I65.23 Occlusion and stenosis of bilateral carotid arteries; D63.8 Anemia in other chronic diseases classified elsewhere; K21.9 Gastro-esophageal reflux disease without esophagitis; I25.10 Atherosclerotic heart disease of native coronary artery without angina pectoris; F32.9 Major depressive disorder, single episode, unspecified; G89.29 Other chronic pain; R53.1 Weakness; R05 Cough; R27.8 Other lack of coordination; R94.4 Abnormal results of kidney function studies; H53.40 Unspecified visual field defects; R51 Headache; M25.512 Pain in left shoulder; Z86.73 Personal history of transient ischemic attack (TIA), and cerebral infarction without residual deficits; Z79.82 Long term (current) use of aspirin; Z87.891 Personal history of nicotine dependence; Z79.02 Long term (current) use of antithrombotics/antiplatelets; Z79.1 Long term (current) use of non-steroidal anti-inflammatories (NSAID); Z79.891 Long term (current) use of opiate analgesic; Z79.899 Other long term (current) drug therapy
CPT/HCPCS: 36415; 36569; 70450; 70496; 70498; 71020; 76937; 77001; 80048; 80053; 80061; 80306; 81003; 82550; 82553; 83090; 84484; 85025; 85610; 85730; 87040; 93005; 93880; 94760; 95819; 96360; 96361; 99285

== ENCOUNTER 2016-11-22 14:56 | Observation (INO) | payer OTHER ==
[2016-11-22] MEDS ORDERED: SODIUM CHLORIDE 0.9% 1,000 ML IV STA (15:42)
[2016-11-22] MEDS ORDERED: KETOROLAC 30 MG/ML 1 ML VIAL IVP STA (15:42)
[2016-11-22] MEDS ORDERED: METOCLOPRAMIDE 5 MG/ML 2 ML VIAL IVP STA (15:42)
[2016-11-22] MEDS ORDERED: DEXAMETHASONE SOD PHOSPHATE 10 MG/ML 1 ML VIAL IV STA (15:43)
[2016-11-22 16:05] LABS: Basophils % (A) 1 %; CH 28.8; CHCM 34.4; HCT 34.4 % (39.0-53.0); HGB 11.9 gm/dL (13.0-17.5); Luc # (Auto) 0.38; Luc % (Auto) 3; RDW 13.1 % (11.5-15.5)
[2016-11-22 16:09] LABS: Basophils # (A) 0.1 k/uL (0-0.2); Eosinophils # (A) 0.3 k/uL (0-0.7); Eosinophils % (A) 2 %; HDW 2.81; Lymphocytes # (A) 1.5 k/uL (1.0-4.8); Lymphocytes % (A) 13 %; MCH 28.9 pg (25.0-35.0); MCHC 34.5 g/dL (31.0-37.0); Mean Platelet Volume 6.9; Monocytes % (A) 8 %; Neutrophils % (A) 74 %; WBC 12.2 k/uL (3.8-10.6); WBC (Perox) 12.19
[2016-11-22 16:11] LABS: MCV 83.8 fL (80.0-100.0)
[2016-11-22 16:13] LABS: Anion Gap 13 mmol/L; Blood Urea Nitrogen 25 mg/dL (9-20); Calcium 9.3 mg/dL (8.4-10.2); Carbon Dioxide 35 mmol/L (22-30); Chloride 85 mmol/L (98-107); Glucose 108 mg/dL (74-99); Non-African American GFR(MDRD) >60 (>60 ml/min/1.73 sqM); Sodium 133 mmol/L (137-145)
[2016-11-22 16:16] LABS: Potassium 2.7 mmol/L (3.5-5.1)
--- NOTE | 2016-11-22 17:16 | CT ---
EXAMINATION TYPE: CT brain wo con DATE OF EXAM: 11/22/2016 5:11 PM COMPARISON: 10/06/2016 HISTORY: Pressure behind left eye. Shakiness and blurred vision. CT DLP: 1165.00 mGycm Automated exposure control for dose reduction was used. FINDINGS: There is a 4 x 2 cm area of hypodensity in the right occipital lobe consistent with old cortical infa rct. There is no mass effect nor midline shift. There is no sign of intracranial hemorrhage. There is mild cerebral atrophy. The calvarium is intact. There is a 5 mm hypodensity in the left caudate nucl eus. IMPRESSION: Old right occipital lobe infarct. Old lacunar infarct left caudate nucleus. No acute intracranial abn ormality. No change.
[2016-11-22] MEDS ORDERED: POTASSIUM CHLORIDE 40 MEQ in SODIUM CHLORIDE 0.9% 250 ML IVPB ONE (18:06)
[2016-11-22] MEDS ORDERED: ONDANSETRON 4 MG/2 ML VIAL IVP PRN (18:20)
[2016-11-22] MEDS ORDERED: NALOXONE 0.4 MG/ML 1 ML VIAL IV PRN (18:20)
--- NOTE | 2016-11-22 18:20 | ED ---
General Adult HPI - General Chief complaint: Headache Stated complaint: Shaky Time Seen by Provider: 11/22/16 15:28 Source: patient Mode of arrival: EMS Limitations: no limitations - History of Present Illness Initial comments: This 56-year-old white male presents with a complaint of feeling very shaky. He states that his arms felt somewhat spastic. His been intermittent in nature. He is having problems utilizing the remote compressing the right button. He states that the symptoms came on this morning. He denies any previous similar incidents. He also relates that he's had a headache which is been intermittent for the last 1 month. He states that is more in the left frontal region as constant pressure like. He denies any nausea or vomiting. He denies any trauma. He does have a history of recent stroke. He barely has loss of vision from his left eye. He seen both ophthalmology as well as neurology in this regard. He is unsure the cause of his loss of vision to his left eye. He's had multiple TIAs versus CVAs and is currently in the rehab facility for last 8 months. No other complaints or modifying factors. - Related Data Home Medications Medication Instructions Recorded Confirmed Atenolol/Chlorthalidone 1 tab PO Q12H 09/02/16 11/22/16 [Atenolol-Chlorthalidone 100-25] Carboxymethylcellulose Sodium 1 drop LEFT EYE Q8H 09/02/16 11/22/16 [Refresh Tears] Clopidogrel [Plavix] 75 mg PO DAILY 09/02/16 11/22/16 Gabapentin [Neurontin] 300 mg PO Q8H 09/02/16 11/22/16 Meclizine [Antivert] 25 mg PO Q6H PRN 09/02/16 11/22/16 traZODone HCL 50 mg PO HS@2100 09/02/16 11/22/16 Atorvastatin [Lipitor] 40 mg PO HS@2100 10/06/16 11/22/16 Furosemide [Lasix] 40 mg PO BID 10/06/16 11/22/16 Aspirin EC [Ecotrin] 325 mg PO DAILY 11/22/16 11/22/16 Fexofenadine HCl [Sarah Allergy] 180 mg PO HS@2100 11/22/16 11/22/16 Multivitamins, Thera [Multivitamin] 1 tab PO DAILY@1200 11/22/16 11/22/16 Pregabalin [Lyrica] 150 mg PO BID 11/22/16 11/22/16 Ranitidine HCl [Zantac] 150 mg PO HS 11/22/16 11/22/16 Verapamil HCl [Verapamil ER] 180 mg PO DAILY 11/22/16 11/22/16 amLODIPine [Norvasc] 10 mg PO HS@2100 11/22/16 11/22/16 guaiFENesin [Mucinex] 600 mg PO DAILY 11/22/16 11/22/16 levETIRAcetam [Keppra] 500 mg PO Q12HR 11/22/16 11/22/16 traMADol HCL [Ultram] 50 mg PO Q8H PRN 11/22/16 11/22/16 Previous Rx's Medication Instructions Recorded Acetaminophen Tab [Tylenol] 500 mg PO Q4HR PRN #0 tab 10/09/16 Folic Acid 1 mg PO DAILY@1200 tab 10/09/16 Hydrocodone/Acetaminophen [[place] 1 tab PO Q6HR PRN #20 tablet 10/09/16 5-325] Thiamine [Vitamin B-1] 100 mg PO DAILY@1200 tab 10/09/16 Allergies Allergy/AdvReac Type Severity Reaction Status Date / Time No Known Allergies Allergy Verified 11/22/16 16:42 Review of Systems ROS Statement: Those systems with pertinent positive or pertinent negative responses have been documented in the HPI. ROS Other: All systems not noted in ROS Statement are negative. Past Medical History Past Medical History: Coronary Artery Disease (CAD), CVA/TIA, GERD/Reflux, Hypertension Additional Past Medical History / Comment(s): neuropathy History of Any Multi-Drug Resistant Organisms: None Reported Past Surgical History: No Surgical Hx Reported Past Psychological History: No Psychological Hx Reported Smoking Status: Former smoker Past Alcohol Use History: None Reported Past Drug Use History: None Reported General Exam - General Exam Comments Initial Comments: GENERAL: The patient is well nourished and well hydrated. VITAL SIGNS: Heart rate, blood pressure, respiratory rate reviewed as recorded in nurse's notes. EYES: Pupils are round and reactive. Extraocular movements are intact. No conjunctival / lid redness or swelling. There is mild left eye conjunctival erythema. ENT: No external evidence of injury, swelling, or ecchymosis. Airway is patent. Throat is clear. NECK: Nontender. No swelling or evidence of injury. No subcutaneous emphysema. Trachea is midline. No thyroid mass. HEART: Regular rate and rhythm. Good peripheral pulses. LUNGS/CHEST: Breath sounds clear and equal bilaterally. No rales, rhonchi, or wheezes. No ecchymosis, subcutaneous emphysema, or tenderness. ABDOMEN: Abdomen soft without tenderness. No palpable masses or organomegaly. No peritoneal signs. No abdominal wall swelling or ecchymosis. EXTREMITIES: No extremity tenderness. Normal muscle tone and function. No thoracolumbar tenderness. NEUROLOGIC: Sensation is grossly intact. Cranial nerve exam reveals face is symmetrical, tongue is midline, speech is clear. Chronic weakness noted to the right upper and right lower extremity. SKIN: No abrasions or ecchymosis is noted. No induration or masses noted. PSYCHIATRIC: Alert and oriented. Appropriate behavior and judgment. Limitations: no limitations Course Vital Signs 11/22/16 11/22/16 15:04 18:01 Temperature 99.6 F Pulse Rate 68 66 Respiratory 20 20 Rate Blood Pressure 136/63 149/71 O2 Sat by Pulse 95 95 Oximetry Medical Decision Making - Medical Decision Making The patient was seen and examined. All diagnostics were reviewed. An IV was started and patient is hydrated. He had decrease in potassium at 2.7, decreased chloride at 85, elevated CO2 at 35. The white blood cell count was slightly elevated at 12.2 and hemoglobin is 11.9. The computed tomography scan of brain shows evidence of an old infarct. The potassium is replaced. Patient receives sodium chloride intravenously as well. It is felt as though his shakiness or spasticity may have potentially been related to electrolyte imbalance. It is felt as though this would take quite some time to treat and that he would benefit from admission to the hospital for further treatment. The case is discussed with internal medicine and they're agreeable to admission. - Lab Data Result diagrams: 11/22/16 15:39 11/22/16 15:39 Lab Results 11/22/16 11/22/16 Range/Units 15:39 15:39 WBC 12.2 H (3.8-10.6) k/uL RBC 4.10 L (4.30-5.90) m/uL Hgb 11.9 L (13.0-17.5) gm/dL Hct 34.4 L (39.0-53.0) % MCV 83.8 D (80.0-100.0) fL MCH 28.9 (25.0-35.0) pg MCHC 34.5 (31.0-37.0) g/dL RDW 13.1 (11.5-15.5) % Plt Count 310 (150-450) k/uL Neutrophils % 74 % Lymphocytes % 13 % Monocytes % 8 % Eosinophils % 2 % Basophils % 1 % Neutrophils # 9.0 H (1.3-7.7) k/uL Lymphocytes # 1.5 (1.0-4.8) k/uL Monocytes # 1.0 (0-1.0) k/uL Eosinophils # 0.3 (0-0.7) k/uL Basophils # 0.1 (0-0.2) k/uL Sodium 133 L (137-145) mmol/L Potassium 2.7 L* (3.5-5.1) mmol/L Chloride 85 L (98-107) mmol/L Carbon Dioxide 35 H (22-30) mmol/L Anion Gap 13 mmol/L BUN 25 H (9-20) mg/dL Creatinine 1.23 (0.66-1.25) mg/dL Est GFR (MDRD) Af Amer >60 (>60 ml/min/1.73 sqM) Est GFR (MDRD) Non-Af >60 (>60 ml/min/1.73 sqM) Glucose 108 H (74-99) mg/dL Calcium 9.3 (8.4-10.2) mg/dL Disposition Clinical Impression: Headache, Shakiness, Hypokalemia, Hypochloremia, Anemia, Leukocytosis Disposition: ADMITTED IP TO THIS HOSP Condition: Fair Time of Disposition: 18:19 Decision Date: 11/22/16 Decision Time: 18:19
[2016-11-22] MEDS ORDERED: MECLIZINE 25 MG TAB PO PRN (18:22)
[2016-11-22] MEDS ORDERED: ACETAMINOPHEN TAB 500 MG TAB PO PRN (18:22)
[2016-11-22] MEDS ORDERED: traMADol 50 MG TAB PO PRN (18:22)
[2016-11-22] MEDS ORDERED: HYDROcodone/APAP 5-325MG 1 EACH TAB PO PRN (18:22)
[2016-11-22] MEDS ORDERED: LORATADINE 10 MG TAB PO SCH (21:00)
[2016-11-22] MEDS ORDERED: FAMOTIDINE 20 MG TAB PO SCH (21:00)
[2016-11-22] MEDS ORDERED: amLODIPine 10 MG TAB PO SCH (21:00)
[2016-11-22] MEDS ORDERED: traZODone HCL 50 MG TAB PO SCH (21:00)
[2016-11-22] MEDS ORDERED: ATORVASTATIN 40 MG TAB PO SCH (21:00)
[2016-11-22] MEDS: ARTIFICIAL TEARS-HYPROMELLOSE DROPS 15 ML BTL LEFT EYE SCH (21:59)
[2016-11-22] MEDS: GABAPENTIN 300 MG CAP PO SCH (22:00)
[2016-11-22] MEDS: FUROSEMIDE 40 MG TAB PO SCH (22:00)
[2016-11-22] MEDS: ATENOLOL 50 MG TAB PO SCH (22:00)
[2016-11-22] MEDS: CHLORTHALIDONE 25 MG TAB PO SCH (22:01)
[2016-11-22] MEDS: levETIRAcetam 500 MG TAB PO SCH (22:01)
[2016-11-22] MEDS: PREGABALIN 50 MG CAP PO SCH (22:01)
[2016-11-23] MEDS: GABAPENTIN 300 MG CAP PO SCH ×2 (02:32→09:23)
[2016-11-23] MEDS: ARTIFICIAL TEARS-HYPROMELLOSE DROPS 15 ML BTL LEFT EYE SCH ×2 (02:32→09:23)
[2016-11-23 07:50] VITALS: BP 127/72; PULSE 75; RESP 20; TEMP 98
[2016-11-23 08:02] LABS: Basophils % (A) 0 %; CH 28.4; CHCM 33.7; Eosinophils % (A) 0 %; HCT 32.7 % (39.0-53.0); HDW 2.84; HGB 10.8 gm/dL (13.0-17.5); Luc # (Auto) 0.04; Luc % (Auto) 1; Lymphocytes # (A) 0.8 k/uL (1.0-4.8); Lymphocytes % (A) 11 %; MCHC 33.2 g/dL (31.0-37.0); MCV 84.5 fL (80.0-100.0); Mean Platelet Volume 6.5; Monocytes # (A) 0.2 k/uL (0-1.0); Monocytes % (A) 3 %; Neutrophils # (A) 5.9 k/uL (1.3-7.7); Neutrophils % (A) 85 %; RBC 3.87 m/uL (4.30-5.90); WBC (Perox) 7.01
[2016-11-23 08:18] LABS: Anion Gap 11 mmol/L; Blood Urea Nitrogen 32 mg/dL (9-20); Calcium 8.9 mg/dL (8.4-10.2); Carbon Dioxide 34 mmol/L (22-30); Chloride 92 mmol/L (98-107); Glucose 135 mg/dL (74-99); Non-African American GFR(MDRD) >60 (>60 ml/min/1.73 sqM); Sodium 137 mmol/L (137-145)
[2016-11-23] MEDS ORDERED: VERAPAMIL SR 180 MG TABLET.ER PO SCH (09:00)
[2016-11-23] MEDS ORDERED: ENOXAPARIN 40 MG/0.4 ML SYRINGE SQ SCH (09:00)
[2016-11-23] MEDS ORDERED: guaiFENesin 600 MG TABLET.ER PO SCH (09:00)
[2016-11-23] MEDS ORDERED: CLOPIDOGREL 75 MG TAB PO SCH (09:00)
[2016-11-23] MEDS ORDERED: PANTOPRAZOLE 40 MG/10 ML VIAL IV SCH (09:00)
[2016-11-23] MEDS ORDERED: ASPIRIN 325 MG TAB PO SCH (09:00)
[2016-11-23] MEDS: PREGABALIN 50 MG CAP PO SCH (09:22)
[2016-11-23] MEDS: ATENOLOL 50 MG TAB PO SCH (09:22)
[2016-11-23] MEDS: FUROSEMIDE 40 MG TAB PO SCH (09:23)
[2016-11-23] MEDS: CHLORTHALIDONE 25 MG TAB PO SCH (09:23)
[2016-11-23] MEDS: levETIRAcetam 500 MG TAB PO SCH (09:23)
[2016-11-23] MEDS ORDERED: POTASSIUM CHLORIDE 20 MEQ, LIDOCAINE 2% INJ 20 MG in SODIUM CHLORIDE 0.9% 100 ML IVPB ONE (11:06)
[2016-11-23] MEDS ORDERED: THIAMINE 100 MG TAB PO SCH (12:00)
[2016-11-23] MEDS ORDERED: MULTIVITAMINS, THERA 1 EACH TAB PO SCH (12:00)
[2016-11-23] MEDS ORDERED: FOLIC ACID 1 MG TAB PO SCH (12:00)
--- NOTE | 2016-11-23 12:43 | HP ---
DATE OF ADMISSION: HISTORY AND PHYSICAL AND DISCHARGE SUMMARY Patient is a 56-year-old admitted with myoclonic activity and feeling shaky secondary to tramadol. Tramadol will be discontinued and patient is already on ( ) which helps with the myoclonic activity. Patient is actually admitted because of hypokalemia. Patient is on multiple medication that make him hypokalemic, one is chlorthalidone and Lasix and patient does not have any congestive heart failure. The Lasix is not necessary. Lasix will be discontinue. Chlorthalidone will be continued and patient is on 2 calcium blockers, verapamil and amlodipine. Amlodipine will be discontinued, instead we will start him on lisinopril, which will help his potassium to go up and we will repeat potassium, need to be obtained in 3 days. Patient will be discharged today with these changes. Patient denied any fever or chills. Patient denied any nausea or vomiting. Patient does not have any symptoms at this point of time. Patient has some intermittent headache, has been going on for some time. Patient is a [facility] resident and patient TIAs and CVA in the past. Does not appear to have any residual weakness he says. He has bilateral upper limb minimal weakness. REVIEW OF SYSTEMS: CONSTITUTIONAL: No fever, no malaise, no fatigue. HEENT: No recent visual problems or hearing problems. Denied any sore throat. CARDIOVASCULAR: No chest pain, orthopnea, PND, no palpitations, no syncope. PULMONARY: No shortness of breath, no cough, no hemoptysis. GASTROINTESTINAL: No diarrhea, no nausea, no vomiting, no abdominal pain. Normoactive bowel sounds. NEUROLOGICAL: No headaches, no weakness, no numbness. HEMATOLOGICAL: Denies any bleeding or petechiae. GENITOURINARY: Denies any burning micturition, frequency, or urgency. MUSCULOSKELETAL/RHEUMATOLOGICAL: Denies any joint pain, swelling, or any muscle pain. ENDOCRINE: Denies any polyuria or polydipsia. The rest of the 14 point review of systems is negative. Home medications include: 1. Atenolol chlorthalidone. 2. Carboxymethylcellulose. 3. Plavix. 4. Gabapentin. 5. Meclizine. 6. Trazodone. 7. Atorvastatin. 8. Lasix. 9. Aspirin. 10. Fexofenadine. 11. Multivitamin. 12. Pregabalin. 13. Ranitidine. 14. Verapamil. 15. Amlodipine. 16. Guaifenesin. 17. Levetiracetam. 18. Tramadol. 19. Acetaminophen. 20. Folic acid. 21. Hydrocodone acetaminophen. 22. Thiamine. ALLERGIES: No known drug allergies. PAST MEDICAL HISTORY: Coronary artery disease, CVA, TIA, gastroesophageal reflux disease, hypertension, neuropathy. SOCIAL HISTORY: Previous smoker. Denied any alcohol abuse or any drug abuse. FAMILY HISTORY: Unknown. Patient is unable to provide me any kind of family history to me, PHYSICAL EXAMINATION: VITAL SIGNS: Temperature is a 98.9, pulse is 75, respiratory rate 20, blood pressure is 127/72, saturating at 91% on room air. PHYSICAL EXAMINATION: GENERAL: The patient is alert and oriented x3, not in any acute distress. Well developed, well nourished. HEENT: Pupils are round and equally reacting to light. EOMI. No scleral icterus. No conjunctival pallor. Normocephalic, atraumatic. No pharyngeal erythema. No thyromegaly. CARDIOVASCULAR: S1 and S2 present. No murmurs, rubs, or gallops. PULMONARY: Chest is clear to auscultation, no wheezing or crackles. ABDOMEN: Soft, nontender, nondistended, normoactive bowel sounds. No palpable organomegaly. MUSCULOSKELETAL: No joint swelling or deformity. EXTREMITIES: No cyanosis, clubbing, or pedal edema. NEUROLOGICAL: No significant new neurological changes were appreciated. Patient's strength in both upper limbs is around 4+/5, almost normal. SKIN: No rashes. LABORATORY DATA: CBC and CMP abnormal for elevated WBC count of 12,200 and now came down to 7000. Potassium is low, which will be supplemented. Sodium was low as well, which is expected to improve with above mentioned changes. The patient had mild acute renal failure, which is expected to improve with discontinuation of diuretic therapy. ASSESSMENT AND PLAN: 1. Myoclonic jerks, probably related to tramadol will be discontinued. Patient is already on phenytoin, which is helpful for myoclonic activity although I will not increase the dose of that medication as I believe his myoclonic activity is mostly related to tramadol. 2. Hypokalemia secondary to chlorthalidone and Lasix. Lasix will be discontinued and patient will be started on lisinopril. 3. Hypertension. Patient is on 2 calcium channel blockers, which is not recommended. Patient will be continued on verapamil. Will discontinue amlodipine instead will use lisinopril. 4. Acute renal failure secondary to excessive diuretic therapy. Lasix will be discontinued. I did review his chart extensively. I did not see any congestive heart failure history. I am not sure why patient is on 2 diuretics, which is also not recommended. 5. Cerebrovascular accident in the past. 6. Leukocytosis, reactive response. 7. Hypertension. 8. Hyponatremia secondary to excessive diuretic therapy. 9. Peripheral neuropathy. This dictation is both H&P and discharge summary. Patient will be discharged today with above mentioned changes. DISCHARGE DIET: Cardiac. Activity as tolerated. Patient will follow that Dr. Ronald Pennington in [place] and patient will go back to [place] today after supplementation of potassium which is presently now 3.
[2016-11-23] MEDS: POTASSIUM CHLORIDE ER 20 MEQ TAB.ER PO SCH ×2 (12:56→13:50)
[2016-11-24] MEDS ORDERED: LISINOPRIL 10 MG TAB PO SCH (09:00)
== END 2016-11-23 14:14 ==
LOC: EC 14:56 → 4MS4W 18:20
PROVIDERS: ADMIT Internal Medicine; ATTEND Internal Medicine
DX: T50.2X5A Adverse effect of carbonic-anhydrase inhibitors, benzothiadiazides and other diuretics, initial encounter (principal); G25.3 Myoclonus; T50.1X5A Adverse effect of loop [high-ceiling] diuretics, initial encounter; R51 Headache; D64.9 Anemia, unspecified; E87.8 Other disorders of electrolyte and fluid balance, not elsewhere classified; H54.62 Unqualified visual loss, left eye, normal vision right eye; E87.6 Hypokalemia; N17.9 Acute kidney failure, unspecified; D72.829 Elevated white blood cell count, unspecified; I10 Essential (primary) hypertension; E87.1 Hypo-osmolality and hyponatremia; G62.9 Polyneuropathy, unspecified; K21.9 Gastro-esophageal reflux disease without esophagitis; I25.10 Atherosclerotic heart disease of native coronary artery without angina pectoris; Z87.891 Personal history of nicotine dependence; Z86.73 Personal history of transient ischemic attack (TIA), and cerebral infarction without residual deficits; Z79.899 Other long term (current) drug therapy; Z79.82 Long term (current) use of aspirin; Z79.891 Long term (current) use of opiate analgesic; Z79.02 Long term (current) use of antithrombotics/antiplatelets
CPT/HCPCS: 96365 ×2; 96361 ×2; 96375 ×4; 99285 ×2; 36415; 93005; 80048 ×2; 85025 ×2; 70450; G0378 ×2; J2001; J1100; J2765; J3480 ×2; J1650; J1885; C9113; 96372